=== PATIENT | female | born 1970 | race Hispanic/Latino ===

== ENCOUNTER 2022-11-12 00:54 | Emergency (ER) | payer OTHER ==
[~2022-11-12] VITALS: Ht 162.6 cm; Wt 90.7 kg
[~2022-11-12 00:54] MED LIST: DICYCLOMINE HCL20 MG PO; FIORICET 50-301 EACH PO; ONDANSETRON ODT4 MG PO
[2022-11-12] MEDS ORDERED: ONDANSETRON HCL INJ 2MG/ML 2ML 2 MG/ML VIAL IV STA (01:32)
[2022-11-12] MEDS ORDERED: SODIUM CHLORIDE 0.9% 1000ML 1,000 ML IV STA (01:32)
[2022-11-12] MEDS ORDERED: SODIUM CHLORIDE 0.9% 1000ML 1,000 ML ONE (01:40)
[2022-11-12] MEDS ORDERED: ONDANSETRON HCL INJ 2MG/ML 2ML 2 MG/ML VIAL ONE (01:40)
[2022-11-12] MEDS ORDERED: ONDANSETRON ODT4 MG PO (02:29)
== END 2022-11-12 03:18 | disposition home or self-care (01) ==
LOC: FSED 01:02
DX: R11.2 Nausea with vomiting, unspecified (principal); G93.5 Compression of brain; Z85.3 Personal history of malignant neoplasm of breast
CPT/HCPCS: 70450; 80053; 81003; 82553; 84484; 85025; 99284; J2405; J7030

== ENCOUNTER 2024-02-01 03:52 | Emergency (ER) | payer OTHER ==
[~2024-02-01] VITALS: Ht 162.6 cm; Wt 90.7 kg
[2024-02-01 04:15] VITALS: TEMP 99.7
[2024-02-01 04:25] VITALS: PULSE 89; RESP 18
[2024-02-01] MEDS: FAMOTIDINE 20 MG/2 ML VIAL IV ONE (05:02)
[2024-02-01] MEDS: KETOROLAC TROMETHAMINE 30 MG/ML VIAL IV ONE (05:03)
[2024-02-01] MEDS: ONDANSETRON HCL INJ 2MG/ML 2ML 2 MG/ML VIAL IV ONE (05:04)
[2024-02-01] MEDS: LACTATED RINGER'S 1,000 ML INJ ONE (05:05)
[2024-02-01] MEDS ORDERED: TYLENOL325 MG PO (05:30)
[2024-02-01] MEDS ORDERED: DICYCLOMINE HCL20 MG PO (05:30)
[2024-02-01] MEDS ORDERED: ONDANSETRON ODT4 MG PO (05:30)
[2024-02-01 06:55] VITALS: BP 149/75; PULSE 84; RESP 18; TEMP 98.3; O2SAT 98
== END 2024-02-01 06:45 | disposition home or self-care (01) ==
LOC: FSED 04:09
DX: S93.402A Sprain of unspecified ligament of left ankle, initial encounter (principal); R07.89 Other chest pain; E86.0 Dehydration; T67.5XXA Heat exhaustion, unspecified, initial encounter; K58.9 Irritable bowel syndrome, unspecified; W18.39XA Other fall on same level, initial encounter; Y93.73 Activity, racquet and hand sports; Z59.6 Low income; Z88.2 Allergy status to sulfonamides; Z88.5 Allergy status to narcotic agent; Z91.040 Latex allergy status
CPT/HCPCS: 71250; 73610; 99284; J1885; J2405; J7121

== ENCOUNTER 2024-08-02 03:14 | Emergency (ER) | payer OTHER ==
[~2024-08-02] VITALS: Ht 162.6 cm; Wt 92.5 kg
[~2024-08-02 03:14] MED LIST changes: +TYLENOL325 MG PO
[2024-08-02] MEDS ORDERED: OMEPRAZOLE40 MG PO (04:38)
[2024-08-02] MEDS: ONDANSETRON HCL INJ 2MG/ML 2ML 2 MG/ML VIAL IV ONE (04:51)
[2024-08-02] MEDS: FAMOTIDINE 20 MG/2 ML VIAL IV ONE (04:51)
[2024-08-02] MEDS: KETOROLAC TROMETHAMINE 30 MG/ML VIAL IV ONE (04:52)
[2024-08-02] MEDS: LACTATED RINGER'S 1,000 ML INJ ONE (04:52)
[2024-08-02 06:03] VITALS: PULSE 83; RESP 15; TEMP 98.9
[2024-08-02 06:06] VITALS: BP 198/93; PULSE 83; RESP 14; TEMP 98.9; O2SAT 99
== END 2024-08-02 06:06 | disposition home or self-care (01) ==
LOC: FSED 03:29
DX: R10.84 Generalized abdominal pain (principal); K58.9 Irritable bowel syndrome, unspecified; E86.0 Dehydration; R11.0 Nausea; G93.5 Compression of brain; Z85.3 Personal history of malignant neoplasm of breast
CPT/HCPCS: 74176; 80048; 80076; 81003; 82553; 84484; 85025; 99284; J1885; J2405; J7121

== ENCOUNTER 2024-10-01 19:07 | Emergency (ER) | payer OTHER ==
[~2024-10-01] VITALS: Ht 162.6 cm; Wt 92.5 kg
[~2024-10-01 19:07] MED LIST changes: +OMEPRAZOLE40 MG PO
[2024-10-01] MEDS: SODIUM CHLORIDE 0.9% 1000ML 1,000 ML IV STA (20:41)
[2024-10-01] MEDS: KETOROLAC TROMETHAMINE 30 MG/ML VIAL IV STA (20:42)
[2024-10-01] MEDS: METOCLOPRAMIDE HCL 10 MG/2ML VIAL IV ONE (20:44)
[2024-10-01] MEDS ORDERED: DONNATAL/LIDOCAINE/MAALOX 30 ML SUSP PO ONE (22:15)
[2024-10-01] MEDS ORDERED: OXYCODONE/ACETAMINOPHEN 5-325 1 EACH TABLET PO STA (22:26)
[2024-10-01] MEDS: LIDOCAINE VISC 2% SOLN 15 ML UDC PO ONE (22:27)
[2024-10-01] MEDS: BELLADONNA ALK/PHENOBARBITAL 5 ML UDC PO ONE (22:27)
[2024-10-01] MEDS: MAGNESIUM/ALUMINUM/SIMETHICONE 30 ML UDC PO ONE (22:27)
[2024-10-01] MEDS ORDERED: PERCOCET 5-3251 EACH PO (22:30)
[2024-10-01 22:33] VITALS: PULSE 84; RESP 18; TEMP 97.9
[2024-10-01] MEDS ORDERED: REGLAN10 MG PO (22:38)
[2024-10-01] MEDS ORDERED: KETOROLAC TROME10 MG PO (22:43)
[2024-10-01 22:58] VITALS: BP 161/88; PULSE 84; RESP 18; TEMP 97.9; O2SAT 98
[2024-10-01] MEDS: HYDROCODONE/APAP 5MG-325MG TAB PO ONE (22:58)
== END 2024-10-01 23:02 | disposition home or self-care (01) ==
LOC: FSED 19:13
DX: R10.32 Left lower quadrant pain (principal); N20.0 Calculus of kidney; E03.9 Hypothyroidism, unspecified; Z87.442 Personal history of urinary calculi; Z85.3 Personal history of malignant neoplasm of breast
CPT/HCPCS: 76705; 80053; 81003; 85025; 96374; 96375; 99284; J1885; J2765; J7030